=== PATIENT | male | born 1945 | race Caucasian/White ===

== ENCOUNTER 2019-07-10 06:30 | Inpatient (IN) | payer MEDICARE, OTHER ==
[2019-07-10] MEDS ORDERED: Lactated Ringers 1,000 ML IV SCH (06:45)
[2019-07-10] MEDS ORDERED: cefOXitin 2 GM Vial IVPUSH ONE (08:01)
--- NOTE | 2019-07-10 08:19 | PCM.HPR ---
H & P Addendum review - H & P Addendum Review Date of Original H & P: 07/09/19 Date Reviewed: 07/10/19 Time Reviewed: 08:05 Patient was Examined: No Changes
[2019-07-10] MEDS ORDERED: Piperacillin/Tazobactam 3.375 GM in Sodium Chloride 0.9% 50 ML IV ONE (09:09)
--- NOTE | 2019-07-10 09:40 | PCM.OPNOTE ---
- General Post-Op/Procedure Note Date of Surgery/Procedure: 07/10/19 Operative Procedure(s): Expl Lap, Adhesiolysis abd Drainage of Absess Findings: Acute Cholecystitis with absess and necrosis of inferior wall Pre Op Diagnosis: Acute Cholecystitis Post-Op Diagnosis: Same Anesthesia Technique: General ET Tube Primary Surgeon: Antonio Shell Anesthesia Provider: Nessa Perez EBL in mLs: 75 Surgical Drain/Tube Type: Umberto Arevalo Round Drain Drain/Tube Comments:: placed in GB Complications: None Condition: Good
[2019-07-10] MEDS ORDERED: Acetaminophen/HYDROcodone 325-5 MG Tab PO PRN (10:00)
[2019-07-10] MEDS: Pantoprazole 40 MG Vial IVPUSH SCH (11:39)
[2019-07-10] MEDS ORDERED: Glycopyrrolate 0.2 MG/ML 5 ML MDV IV ONE (12:24)
[2019-07-10] MEDS ORDERED: Neostigmine Methylsulfate 10 MG/10 ML MDV IVPUSH ONE (12:24)
[2019-07-10] MEDS ORDERED: Rocuronium 50 MG/5 ML Vial IV ONE (12:24)
[2019-07-10] MEDS ORDERED: Propofol 200 MG/20 ML SDV IV ONE (12:24)
[2019-07-10] MEDS ORDERED: Succinylcholine 200 MG/10 ML MDV IV ONE (12:24)
[2019-07-10] MEDS ORDERED: Lactated Ringers 1,000 ML IV ONE (12:24)
[2019-07-10] MEDS ORDERED: HYDROmorphone 2 MG/ML SDV IV ONE (12:24)
[2019-07-10] MEDS ORDERED: fentaNYL 100 MCG/2 ML SDV IV ONE (12:24)
[2019-07-10] MEDS ORDERED: Ondansetron 4 MG/2 ML SDV IVPUSH ONE (12:24)
[2019-07-10] MEDS ORDERED: Midazolam 1 MG/ML 2 ML SDV IV ONE (12:24)
[2019-07-10] MEDS: Lactated Ringers 1,000 ML IV SCH ×2 (13:10→22:12)
[2019-07-10] MEDS: Morphine 2 MG/ML Syringe IV PRN ×4 (14:09→21:35)
[2019-07-10] MEDS ORDERED: Sodium Chloride 0.9% 250 ML IV SCH (14:45)
[2019-07-10] MEDS: Piperacillin/Tazobactam 3.375 GM in Sodium Chloride 0.9% 50 ML IV SCH ×2 (16:51→21:48)
[2019-07-10] MEDS ORDERED: Ketorolac 30 MG/ML SDV IVPUSH PRN (17:38)
[2019-07-10] MEDS: Ketorolac 15 MG/ML SDV IVPUSH PRN (18:59)
[2019-07-11] MEDS: Morphine 2 MG/ML Syringe IV PRN ×2 (00:33→04:59)
[2019-07-11] MEDS: Ketorolac 15 MG/ML SDV IVPUSH PRN (02:22)
[2019-07-11] MEDS: Piperacillin/Tazobactam 3.375 GM in Sodium Chloride 0.9% 50 ML IV SCH ×2 (04:41→09:50)
[2019-07-11] MEDS: Lactated Ringers 1,000 ML IV SCH (08:33)
--- NOTE | 2019-07-11 08:33 | OR ---
DATE OF OPERATION: 07/10/2019 SURGEON: Antonio Shell MD PREOPERATIVE DIAGNOSIS: Acute cholecystitis. POSTOPERATIVE DIAGNOSIS: Acute gangrenous cholecystitis with abscess and adhesions. PROCEDURE: Exploratory laparoscopy with adhesiolysis and drainage of abscess. ANESTHESIA: General. PROCEDURE IN DETAIL: The patient was brought to the operating room, where general endotracheal anesthesia was administered. The abdomen was prepped with ChloraPrep and draped sterilely. An infraumbilical incision was made and extended into the peritoneal cavity without difficulty. Fer cannula was introduced and pneumoperitoneum obtained. The patient was placed in reverse Trendelenburg position and rotated to the left. There was much omentum in the right upper quadrant that was adherent to the overlying costal margin. I placed an epigastric 5 mm port and a right-sided 5 mm port and took down the omentum bluntly. This resulted in some oozing. I then started to peel the omentum off the liver and a large abscess cavity was entered with approximately 100 mL of purulent drainage being encountered. This was collected and sent for culture and the rest was irrigated and suctioned. I then placed another 5 mm port in the mid abdomen, midclavicular line, and worked on taking down the omentum further to expose the undersurface of the liver. The gallbladder was identified and the inferior wall is absent from necrosis. Approximately 2 cm defect was present. There were several small dark stones present that were suctioned. It became obvious that to remove the patient's gallbladder would be difficult if not impossible and put him at high risk for colon and/or bile duct injury because of everything densely adhesed together. I asked Dr. Paco Tinsley to come in and look, and both of us agree the best thing to do would be to place a drain in the gallbladder for abscess drainage and to control of bile fistula, if that occurs, with the option of an ERCP down the road if necessary. Over a liter of irrigant was used to irrigate and suction the right upper quadrant until return was clear. Oozing did occur during the case, which stopped spontaneously. A quarter-inch round Davol drain was brought out through the right lateral port site and placed in the gallbladder. The omentum was then placed back over this area while pneumoperitoneum was slowly released to ensure that the drain stays in place. The drain was secured to the skin with 2-0 silk. Ports were removed under direct vision and remained hemostatic. Umbilical fascia was closed with [id number] Vicryl. Skin was closed with 4-0 Vicryl subcuticular sutures. Benzoin and Steri-Strips were placed and Band-Aids applied. The patient tolerated the procedure well. Estimated blood loss was 75 mL. He returned to postanesthesia in stable condition. /[id number] GEE/HUGO CC: COPY FAXED TO JESSE SANTIAGO, PEDRITO BRIGGS
--- NOTE | 2019-07-11 08:53 | PCM.DCSUM1 ---
Discharge Summary - Hospital Course Free Text/Narrative:: Underwent attempted lap nataliia yesterday and had Absess and necrosis of GB. CELSO drain was placed and is feeling much better. Has high output of bile (approx 300 ml/shift) and will need ERCP with stent placement. Spoke with Dr Pagn hospitalist and Dr Fierro from GI who agree to accept patient. - Discharge Data Discharge Date: 07/11/19 Discharge Disposition: DC/Tfer to Acute Hospital 02 Condition: Good - Referral to Home Health Primary Care Physician: Lilia Palumbo NP - Patient Summary/Data Operative Procedure(s) Performed: Expl Lap, Adhesiolysis abd Drainage of Absess Complications: none - Patient Instructions Diet: NPO - Discharge Plan Home Medications: Home Meds Aspirin [Low Dose Aspirin EC] 81 mg PO DAILY 07/09/19 [History] Dronedarone [Multaq] 400 mg PO BIDMEALS 07/09/19 [History] Latanoprost [Xalatan] 2.5 ml OP BEDTIME 07/09/19 [History] Omeprazole 20 mg PO ACBREAKFAST 07/09/19 [History] Psyllium [Metamucil] 1 tbs PO DAILY PRN 07/09/19 [History] Timolol Hemihydrate [Betimol 0.5% Ophth Soln] 1 drop EYEBOTH DAILY 07/09/19 [ History] amLODIPine Besylate/Benazepril [Amlodipine-Benazepril 10-20 mg] 1 each PO DAILY 07/09/19 [History] hydroCHLOROthiazide [Hydrochlorothiazide] 12.5 mg PO DAILY 07/09/19 [History] Amoxicillin/Clavulanate K [Augmentin 875-125 MG] 1 tab PO BID 07/10/19 [History] Patient Handouts: Percutaneous Abscess Drain, Fall Prevention in Hospitals, Adult, Exploratory Laparotomy, Adult, Venous Thromboembolism Prevention, Surgical Drain Home Care - Discharge Summary/Plan Comment DC Time >30 min.: Yes - Patient Data Vitals - Most Recent: Last Vital Signs Temp 97.9 F 07/11/19 04:00 Pulse 62 07/11/19 04:00 Resp 18 07/11/19 04:00 BP 119/76 07/11/19 04:00 Pulse Ox 95 07/11/19 04:00 Weight - Most Recent: 91.626 kg I&O - Last 24 hours: Intake & Output 07/10/19 07/11/19 07/11/19 22:59 06:59 14:59 Intake Total 1233 1312 Output Total 1045 365 Balance 188 947 Lab Results - Last 24 hrs: Laboratory Results - last 24 hr 07/11/19 07/11/19 Range/Units 06:55 06:55 WBC 8.8 (4.5-12.0) X10-3/uL RBC 4.50 (4.30-5.75) x10(6)uL Hgb 12.2 L (13.5-17.8) g/dL Hct 37.4 (30.0-51.3) % MCV 83.1 (80-96) fL MCH 27.2 L (27.7-33.6) pg MCHC 32.7 (32.2-35.4) g/dL RDW 13.9 (11.5-15.5) % Plt Count 268 (125-369) X10(3)uL MPV 7.9 (7.4-10.4) fL Neut % (Auto) 81.2 (46-82) % Lymph % (Auto) 10.1 L (13-37) % [place] % (Auto) 7.5 (4-12) % Eos % (Auto) 1 (1.0-5.0) % Baso % (Auto) 0 (0-2) % Neut # (Auto) 7.1 (1.6-8.3) # Lymph # (Auto) 0.9 (0.6-5.0) # [place] # (Auto) 0.7 (0.0-1.3) # Eos # (Auto) 0.1 (0.0-0.8) # Baso # (Auto) 0.0 (0.0-0.2) # Sodium 141 (135-145) mmol/L Potassium 3.8 (3.5-5.3) mmol/L Chloride 104 (100-110) mmol/L Carbon Dioxide 33 H (21-32) mmol/L BUN 27 H (7-18) mg/dL Creatinine 1.4 H (0.70-1.30) mg/dL Est Cr Clr Drug Dosing 33.23 mL/min Estimated GFR (MDRD) 50 L (>60) BUN/Creatinine Ratio 19.3 (9-20) Glucose 123 H (80-116) mg/dL Calcium 8.3 L (8.6-10.2) mg/dL Total Bilirubin 0.9 (0.1-1.3) mg/dL AST 27 H (5-25) IU/L ALT 24 (12-36) U/L Alkaline Phosphatase 54 L (56-112) IU/L Total Protein 5.9 L (6.0-8.0) g/dL Albumin 2.1 L (3.2-4.6) g/dL Globulin 3.8 g/dL Albumin/Globulin Ratio 0.6 NANCY Results - Last 24 hrs: Microbiology 07/10/19 08:50 Gram Stain - Final Abdominal Fluid - Aspirate Med Orders - Current: Current Medications Hydrocodone Bitart/Acetaminophen (Wells 325-5 Mg) 1 tab PO Q4H PRN PRN Reason: Pain (mild 1-3) Enoxaparin Sodium (Lovenox) 30 mg SUBCUT Q24H [facility] Lactated Ringer's (Ringers, Lactated) 1,000 mls @ 125 mls/hr IV ASDIRECTED [facility] Last Admin: 07/11/19 08:33 Dose: 125 mls/hr Piperacillin Sod/Tazobactam (Sod 3.375 gm/ Sodium Chloride) 50 mls @ 100 mls/ hr IV Q6H [facility] Stop: 07/15/19 10:29 Last Admin: 07/11/19 04:41 Dose: 100 mls/hr Sodium Chloride (Normal Saline) 250 mls @ 100 mls/hr IV ASDIRECTED [facility] Ketorolac Tromethamine (Toradol) 15 mg IVPUSH Q6H PRN PRN Reason: Pain Stop: 07/15/19 17:39 Last Admin: 07/11/19 02:22 Dose: 15 mg Morphine Sulfate (Morphine) 2 mg IV Q1H PRN PRN Reason: PAIN (SEVERE 7-10/10) Last Admin: 07/11/19 04:59 Dose: 2 mg Pantoprazole Sodium (Protonix Iv) 40 mg IVPUSH Q24H [facility] Last Admin: 07/10/19 11:39 Dose: 40 mg Sodium Chloride (Saline Flush) 10 ml FLUSH ASDIRECTED PRN PRN Reason: Keep Vein Open Discontinued Medications Cefoxitin Sodium (Mefoxin) 2 gm IVPUSH ONETIME ONE Stop: 07/10/19 08:02 Last Admin: 07/10/19 08:09 Dose: 2 gm Lactated Ringer's (Ringers, Lactated) 1,000 mls @ 125 mls/hr IV ASDIRECTED [facility] Last Admin: 07/10/19 07:55 Dose: 125 mls/hr Piperacillin Sod/Tazobactam (Sod 3.375 gm/ Sodium Chloride) 50 mls @ 100 mls/ hr IV ONETIME ONE Stop: 07/10/19 09:38 Last Admin: 07/10/19 09:18 Dose: Not Given Ketorolac Tromethamine (Toradol) 30 mg IVPUSH Q6H PRN PRN Reason: Pain Stop: 07/15/19 17:39
--- NOTE | 2019-07-11 08:56 | PCM.SURGPN ---
- General Info Date of Service: 07/11/19 Date of Surgery/Procedure: 07/10/19 POD#: 1 Functional Status: Reports: Pain Controlled, Tolerating Diet, Ambulating, Urinating - Review of Systems General: Reports: No Symptoms. Denies: Fever Pulmonary: Reports: No Symptoms Cardiovascular: Reports: No Symptoms Gastrointestinal: Reports: Flatus. Denies: Abdominal Pain Genitourinary: Reports: No Symptoms - Patient Data Vitals - Most Recent: Last Vital Signs Temp 97.9 F 07/11/19 04:00 Pulse 62 07/11/19 04:00 Resp 18 07/11/19 04:00 BP 119/76 07/11/19 04:00 Pulse Ox 95 07/11/19 04:00 Weight - Most Recent: 91.626 kg I&O - Last 24 Hours: Intake & Output 07/10/19 07/11/19 07/11/19 22:59 06:59 14:59 Intake Total 1233 1312 Output Total 1045 365 Balance 188 947 Lab Results Last 24 Hrs: Laboratory Results - last 24 hr 07/11/19 07/11/19 Range/Units 06:55 06:55 WBC 8.8 (4.5-12.0) X10-3/uL RBC 4.50 (4.30-5.75) x10(6)uL Hgb 12.2 L (13.5-17.8) g/dL Hct 37.4 (30.0-51.3) % MCV 83.1 (80-96) fL MCH 27.2 L (27.7-33.6) pg MCHC 32.7 (32.2-35.4) g/dL RDW 13.9 (11.5-15.5) % Plt Count 268 (125-369) X10(3)uL MPV 7.9 (7.4-10.4) fL Neut % (Auto) 81.2 (46-82) % Lymph % (Auto) 10.1 L (13-37) % [place] % (Auto) 7.5 (4-12) % Eos % (Auto) 1 (1.0-5.0) % Baso % (Auto) 0 (0-2) % Neut # (Auto) 7.1 (1.6-8.3) # Lymph # (Auto) 0.9 (0.6-5.0) # [place] # (Auto) 0.7 (0.0-1.3) # Eos # (Auto) 0.1 (0.0-0.8) # Baso # (Auto) 0.0 (0.0-0.2) # Sodium 141 (135-145) mmol/L Potassium 3.8 (3.5-5.3) mmol/L Chloride 104 (100-110) mmol/L Carbon Dioxide 33 H (21-32) mmol/L BUN 27 H (7-18) mg/dL Creatinine 1.4 H (0.70-1.30) mg/dL Est Cr Clr Drug Dosing 33.23 mL/min Estimated GFR (MDRD) 50 L (>60) BUN/Creatinine Ratio 19.3 (9-20) Glucose 123 H (80-116) mg/dL Calcium 8.3 L (8.6-10.2) mg/dL Total Bilirubin 0.9 (0.1-1.3) mg/dL AST 27 H (5-25) IU/L ALT 24 (12-36) U/L Alkaline Phosphatase 54 L (56-112) IU/L Total Protein 5.9 L (6.0-8.0) g/dL Albumin 2.1 L (3.2-4.6) g/dL Globulin 3.8 g/dL Albumin/Globulin Ratio 0.6 Myke Results Last 24 Hrs: Microbiology 07/10/19 08:50 Gram Stain - Final Abdominal Fluid - Aspirate Med Orders - Current: Current Medications Hydrocodone Bitart/Acetaminophen (Rea 325-5 Mg) 1 tab PO Q4H PRN PRN Reason: Pain (mild 1-3) Enoxaparin Sodium (Lovenox) 30 mg SUBCUT Q24H [facility] Lactated Ringer's (Ringers, Lactated) 1,000 mls @ 125 mls/hr IV ASDIRECTED [facility] Last Admin: 07/11/19 08:33 Dose: 125 mls/hr Piperacillin Sod/Tazobactam (Sod 3.375 gm/ Sodium Chloride) 50 mls @ 100 mls/ hr IV Q6H [facility] Stop: 07/15/19 10:29 Last Admin: 07/11/19 04:41 Dose: 100 mls/hr Sodium Chloride (Normal Saline) 250 mls @ 100 mls/hr IV ASDIRECTED [facility] Ketorolac Tromethamine (Toradol) 15 mg IVPUSH Q6H PRN PRN Reason: Pain Stop: 07/15/19 17:39 Last Admin: 07/11/19 02:22 Dose: 15 mg Morphine Sulfate (Morphine) 2 mg IV Q1H PRN PRN Reason: PAIN (SEVERE 7-10/10) Last Admin: 07/11/19 04:59 Dose: 2 mg Pantoprazole Sodium (Protonix Iv) 40 mg IVPUSH Q24H [facility] Last Admin: 07/10/19 11:39 Dose: 40 mg Sodium Chloride (Saline Flush) 10 ml FLUSH ASDIRECTED PRN PRN Reason: Keep Vein Open Discontinued Medications Cefoxitin Sodium (Mefoxin) 2 gm IVPUSH ONETIME ONE Stop: 07/10/19 08:02 Last Admin: 07/10/19 08:09 Dose: 2 gm Lactated Ringer's (Ringers, Lactated) 1,000 mls @ 125 mls/hr IV ASDIRECTED [facility] Last Admin: 07/10/19 07:55 Dose: 125 mls/hr Piperacillin Sod/Tazobactam (Sod 3.375 gm/ Sodium Chloride) 50 mls @ 100 mls/ hr IV ONETIME ONE Stop: 07/10/19 09:38 Last Admin: 07/10/19 09:18 Dose: Not Given Ketorolac Tromethamine (Toradol) 30 mg IVPUSH Q6H PRN PRN Reason: Pain Stop: 07/15/19 17:39 - Exam Wound/Incisions: Dressing Dry and Intact, No Drainage, Other (Approx 300 ml of bilious fluid for CELSO drain the past 2 shifts) Lungs: Clear to Auscultation GI/Abdominal Exam: Soft, Non-Tender Sepsis Event Note - Evaluation Sepsis Screening Result: No Definite Risk - Focused Exam Vital Signs: Vital Signs Temp Pulse Resp BP Pulse Ox 07/11/19 04:00 97.9 F 62 18 119/76 95 07/11/19 00:00 98.1 F 65 18 115/68 92 L Date Exam was Performed: 07/11/19 Time Exam was Performed: 08:53 - Problem List Review Problem List Initiated/Reviewed/Updated: Yes - My Orders Last 24 Hours: Active Orders 24 hr Category Date Time Status Patient Status [ADT] Routine ADT 07/10/19 10:37 Active Antiembolic Devices [RC] .Routine Care 07/10/19 10:03 Active Oxygen Therapy [RC] PRN Care 07/10/19 10:01 Active Up With Assistance [RC] QSHIFT Care 07/10/19 10:00 Active VTE/DVT Education [RC] Click to Edit Care 07/10/19 10:03 Active Clear Liquid Diet [DIET] Diet 07/10/19 Dinner Ordered CULTURE ANAEROBIC [RM] Routine Lab 07/10/19 08:50 Results CULTURE ROUTINE + SMEAR [RM] Routine Lab 07/10/19 08:50 Results Acetaminophen/HYDROcodone [Rea 325-5 MG] Med 07/10/19 10:00 Active 1 tab PO Q4H PRN Enoxaparin [Lovenox] Med 07/11/19 09:00 Pending 30 mg SUBCUT Q24H Ketorolac [Toradol] Med 07/10/19 18:12 Active 15 mg IVPUSH Q6H PRN Lactated Ringers [Ringers, Lactated] 1,000 ml Med 07/10/19 10:00 Active IV ASDIRECTED Morphine Med 07/10/19 10:13 Active 2 mg IV Q1H PRN Pantoprazole [ProTONIX IV] Med 07/10/19 10:15 Active 40 mg IVPUSH Q24H Piperacillin/Tazobactam [Zosyn] 3.375 gm Med 07/10/19 16:00 Active Sodium Chloride 0.9% [Normal Saline] 50 ml IV Q6H Sodium Chloride 0.9% [Normal Saline] 250 ml Med 07/10/19 14:45 Active IV ASDIRECTED DVT/VTE Prophylaxis Reflex [OM.PC] Per Unit Routine Oth 07/10/19 10:02 Ordered Medication Orders Hydrocodone Bitart/Acetaminophen (Rea 325-5 Mg) 1 tab PO Q4H PRN PRN Reason: Pain (mild 1-3) Enoxaparin Sodium (Lovenox) 30 mg SUBCUT Q24H [facility] Lactated Ringer's (Ringers, Lactated) 1,000 mls @ 125 mls/hr IV ASDIRECTED [facility] Last Admin: 07/11/19 08:33 Dose: 125 mls/hr Infusion: 07/11/19 06:12 Dose: 125 mls/hr Admin: 07/10/19 22:12 Dose: 125 mls/hr Infusion: 07/10/19 21:10 Dose: 125 mls/hr Admin: 07/10/19 13:10 Dose: 125 mls/hr Piperacillin Sod/Tazobactam (Sod 3.375 gm/ Sodium Chloride) 50 mls @ 100 mls/ hr IV Q6H [facility] Stop: 07/15/19 10:29 Last Admin: 07/11/19 04:41 Dose: 100 mls/hr Admin: 07/10/19 21:48 Dose: 100 mls/hr Admin: 07/10/19 16:51 Dose: 100 mls/hr Sodium Chloride (Normal Saline) 250 mls @ 100 mls/hr IV ASDIRECTED [facility] Ketorolac Tromethamine (Toradol) 15 mg IVPUSH Q6H PRN PRN Reason: Pain Stop: 07/15/19 17:39 Last Admin: 07/11/19 02:22 Dose: 15 mg Admin: 07/10/19 18:59 Dose: 15 mg Morphine Sulfate (Morphine) 2 mg IV Q1H PRN PRN Reason: PAIN (SEVERE 7-10/10) Last Admin: 07/11/19 04:59 Dose: 2 mg Admin: 07/11/19 00:33 Dose: 2 mg Admin: 07/10/19 21:35 Dose: 2 mg Admin: 07/10/19 16:48 Dose: 2 mg Admin: 07/10/19 15:16 Dose: 2 mg Admin: 07/10/19 14:09 Dose: 2 mg Pantoprazole Sodium (Protonix Iv) 40 mg IVPUSH Q24H [facility] Last Admin: 07/10/19 11:39 Dose: 40 mg Sodium Chloride (Saline Flush) 10 ml FLUSH ASDIRECTED PRN PRN Reason: Keep Vein Open - Assessment Assessment (Free Text/Narrative):: Doing well with controlled bile leak - Plan Plan (Free Text/Narrative):: Will transfer to [facility] for ERCP with stent placement Cont IV Zosyn, cultures pending
[2019-07-11] MEDS ORDERED: Enoxaparin 30 MG/0.3 ML Syringe SUBCUT SCH (09:00)
[2019-07-11] MEDS: Sodium Chloride 0.9% 10 ML Syringe FLUSH PRN ×2 (09:50→11:32)
[2019-07-11] MEDS: Pantoprazole 40 MG Vial IVPUSH SCH (11:24)
== END 2019-07-11 12:25 | DRG 445 ==
LOC: FB.SDS 06:30 → FB.MS 10:37 → FB.SDS 10:37 → FB.MS 10:40
PROVIDERS: ADMIT Surgery; ATTEND Surgery
DX: K80.00 Calculus of gallbladder with acute cholecystitis without obstruction (principal); K57.32 Diverticulitis of large intestine without perforation or abscess without bleeding; K82.8 Other specified diseases of gallbladder; K82.A1 Gangrene of gallbladder in cholecystitis; I48.0 Paroxysmal atrial fibrillation; K57.92 Diverticulitis of intestine, part unspecified, without perforation or abscess without bleeding; G47.30 Sleep apnea, unspecified; K21.9 Gastro-esophageal reflux disease without esophagitis; I70.0 Atherosclerosis of aorta; Z79.899 Other long term (current) drug therapy; Z91.048 Other nonmedicinal substance allergy status; I10 Essential (primary) hypertension; Z79.82 Long term (current) use of aspirin; K66.0 Peritoneal adhesions (postprocedural) (postinfection)
CPT/HCPCS: 36415; 80053; 84132; 85025; 87070; 87075; 87205; 94150; C9113; J0330; J0694; J1170; J1885; J2250; J2270; J2405; J2543; J2704; J2710; J3010; J3490; J7050; J7120